=== PATIENT | female | born 1935 | race African-American/Black ===

== ENCOUNTER 2019-07-04 14:35 | Inpatient (IN) | payer MEDICARE, MEDICAID ==
[~2019-07-04] VITALS: Ht 160 cm; Wt 50.8 kg
[2019-07-04] VITALS (28 sets, daily range): BP systolic 71–200; BP diastolic 41–166
[2019-07-04] MEDS ORDERED: DOPAMINE 400MG/250ML PREMIX 250 ML IV ONE ×2 (14:51→15:45)
[2019-07-04] MEDS ORDERED: SODIUM CHLORIDE 0.9% 1,000 ML IV ONE (14:56)
[2019-07-04] MEDS ORDERED: ETOMIDATE 2MG/ML 10ML VIAL IV ONE (15:00)
[2019-07-04] MEDS ORDERED: SUCCINYLCHOLINE CHLORIDE 200MG/10ML IV ONE (15:00)
[2019-07-04 15:30] LABS: BG BASE EXCESS -0.8 mmol/L (-2.0-2.0); BG CARBOXYHEMOGLOBIN 0.7 % (0.5-1.5); BG DEOXYHEMOGLOBIN 0.3 % (0.0-5.0); BG FRACTION INSPIRED OXYGEN 100; BG HCO3 ACT 26.2 mmol/L (22.0-26.0); BG METHEMOGLOBIN 0.2 % (0.0-1.5); BG OXYGEN SATURATION 99.7 % (92.0-98.5); BG OXYHEMOGLOBIN 98.8 % (94.0-97.0); BG PCO2 53.3 mmHg (35.0-45.0); BG PH 7.309 (7.350-7.450); BG PO2 > 602.7 mmHg (75.0-100.0); BG SAMPLE SITE RIGHT RADIAL; BG TIDAL VOLUME(mL) 350 mL; BG TOTAL HEMOGLOBIN 12.5 g/dL (12.0-18.0); BG VENT MODE VENT - A/C; BG VENT RATE 14 set
[2019-07-04 16:12] LABS: HEMOGLOBIN. 12.8 g/dL (12.0-16.0); INR 1.4; MEAN CORPUSCULAR HEMOGLOBIN 29.4 pg (28.0-32.0); MEAN CORPUSCULAR VOLUME 96.8 fL (81.0-99.0); MEAN PLATELET VOLUME 12.2 fl (7.4-10.4); PARTIAL THROMBOPLASTIN TIME 31.5 sec (23.4-31.0); PLATELET 74 x1000/uL (130-400); PROTHROMBIN TIME 14.3 sec (9.6-11.0); RED BLOOD CELL COUNT 4.34 mill/uL (4.2-5.4); RED CELL DISTRIBUTION WIDTH 16.5 % (11.6-14.6)
[2019-07-04 17:07] LABS: PLATELET ESTIMATE DECREASED
[2019-07-04 17:30] LABS: CHLORIDE 115 mEq/L (98-107)
[2019-07-04] MEDS ORDERED: ATROPINE SULFATE 1MG/10ML SYR IV ONE ×3 (17:45→18:15)
[2019-07-04] MEDS ORDERED: IPRATROPIUM/ALBUTEROL 0.5-3(2.5)MG/3ML NEB HHN PRN (17:45)
[2019-07-04] MEDS ORDERED: ACETAMINOPHEN 325MG TABLET PO PRN (17:45)
[2019-07-04] MEDS ORDERED: ONDANSETRON HCL 4MG/2ML INJ IV PRN (17:45)
[2019-07-04 18:51] LABS: CLARITY URINE CLOUDY (CLEAR); COLOR URINE YELLOW (YELLOW); KETONES URINE NEGATIVE (NEGATIVE); LEUKOCYTE ESTERASE URINE NEGATIVE (NEGATIVE); NITRITE URINE NEGATIVE (NEGATIVE); OCCULT BLOOD URINE 2+ (NEGATIVE); PROTEIN URINE 1+ (NEGATIVE); SPECIFIC GRAVITY URINE 1.019 (1.005-1.030); UROBILINOGEN URINE 0.2 E.U./dL (0.2-1.0)
[2019-07-04] MEDS ORDERED: HYDRALAZINE 20MG/ML VIAL IV PRN (19:17)
[2019-07-04] MEDS ORDERED: SODIUM CHLORIDE 0.9% 1,000 ML IV SCH (19:30)
[2019-07-04] MEDS ORDERED: DOPAMINE 400MG/250ML PREMIX 250 ML IV PRN (19:45)
[2019-07-04] MEDS: BLOOD SUGAR DIAGNOSTIC STRIP TEST SCH (20:01)
[2019-07-04] MEDS: IPRATROPIUM/ALBUTEROL 0.5-3(2.5)MG/3ML NEB HHN SCH (20:17)
[2019-07-04] MEDS: INSULIN LISPRO 100 UNITS/ML SUBCUT SCH (20:29)
[2019-07-04] MEDS ORDERED: CHOL400T28 PO (22:53)
[2019-07-04] MEDS ORDERED: SITA50TA3 PO (22:53)
[2019-07-04] MEDS ORDERED: AMLO10TA80 PO (22:53)
[2019-07-04] MEDS ORDERED: CLON0.2T PO (22:53)
[2019-07-05] VITALS (106 sets, daily range): BP systolic 54–145; BP diastolic 23–112
[2019-07-05] MEDS: IPRATROPIUM/ALBUTEROL 0.5-3(2.5)MG/3ML NEB HHN SCH ×7 (00:51→20:26)
[2019-07-05] MEDS: BUDESONIDE 0.5MG/2ML NEB HHN SCH ×3 (00:51→20:34)
[2019-07-05] MEDS: INSULIN LISPRO 100 UNITS/ML SUBCUT SCH ×2 (06:13→18:27)
[2019-07-05] MEDS: BLOOD SUGAR DIAGNOSTIC STRIP TEST SCH ×11 (06:13→18:22)
[2019-07-05] MEDS: DEXTROSE 50% WATER 50ML SYRINGE IV PRN ×6 (06:14→12:14)
[2019-07-05 06:27] LABS: HEMATOCRIT. 40.7 % (36.0-48.0); HEMOGLOBIN. 12.9 g/dL (12.0-16.0); MEAN CORPUSCULAR HEMOGLOBIN 29.6 pg (28.0-32.0); MEAN CORPUSCULAR VOLUME 93.1 fL (81.0-99.0); MEAN PLATELET VOLUME 12.4 fl (7.4-10.4); PLATELET 109 x1000/uL (130-400); RED BLOOD CELL COUNT 4.37 mill/uL (4.2-5.4); RED CELL DISTRIBUTION WIDTH 15.6 % (11.6-14.6)
[2019-07-05] MEDS ORDERED: PIPERACILLIN/TAZOBACTAM 3.375 G in DEXT 5% WATER 100 ML IV SCH (08:00)
[2019-07-05] MEDS ORDERED: DEXT 5%/0.9% NACL 1,000 ML IV SCH (08:00)
[2019-07-05] MEDS: NOREPINEPHRINE 16 MG in DEXT 5% WATER 484 ML IV PRN ×2 (08:27→18:14)
[2019-07-05] MEDS ORDERED: MAGNESIUM 2 G PREMIX 50 ML IV NR (09:00)
[2019-07-05 09:36] LABS: NUCLEATED RED BLOOD CELLS 2 /100 WBC
[2019-07-05 09:38] LABS: PLATELET ESTIMATE SLIGHTLY DECREASED
[2019-07-05] MEDS ORDERED: SODIUM BICARBONATE 4% (2.4MEQ) 5ML VIAL IV ONE (09:47)
[2019-07-05] MEDS ORDERED: LIDOCAINE HCL 1% 20ML VIAL (Pyxis) INJ ONE ×2 (09:47→10:23)
[2019-07-05] MEDS ORDERED: VANCOMYCIN 1 G PREMIX 200 ML IV NR (10:00)
[2019-07-05] MEDS: PHENYLEPHRINE 80 MG in DEXT 5% WATER 492 ML IV PRN ×2 (10:18→18:14)
[2019-07-05] MEDS: PIPERACILLIN/TAZOBACTAM 2.25 G in DEXTROSE 5% WATER 50 ML IV SCH ×3 (10:49→21:13)
[2019-07-05] MEDS ORDERED: DEXT 10% WATER 1,000 ML IV SCH (11:00)
[2019-07-05 11:19] LABS: BG BASE EXCESS -11.8 mmol/L (-2.0-2.0); BG CARBOXYHEMOGLOBIN 0.9 % (0.5-1.5); BG DEOXYHEMOGLOBIN 1.1 % (0.0-5.0); BG FRACTION INSPIRED OXYGEN 40; BG HCO3 ACT 12.9 mmol/L (22.0-26.0); BG METHEMOGLOBIN 0.5 % (0.0-1.5); BG OXYGEN SATURATION 98.9 % (92.0-98.5); BG OXYHEMOGLOBIN 97.5 % (94.0-97.0); BG PCO2 26.4 mmHg (35.0-45.0); BG PH 7.308 (7.350-7.450); BG PO2 147.1 mmHg (75.0-100.0); BG SAMPLE SITE RIGHT BRACHIAL; BG TIDAL VOLUME(mL) 450 mL; BG TOTAL HEMOGLOBIN 12.1 g/dL (12.0-18.0); BG VENT MODE VENT - A/C; BG VENT RATE 14 set
[2019-07-05] MEDS ORDERED: SODIUM BICARBONATE 8.4% 1 MEQ/ML 50ML SYR IV NR (11:30)
[2019-07-05] MEDS: METHYLPREDNISOLONE SOD SUCC 40 MG/ML VIAL IV SCH ×2 (11:42→18:33)
[2019-07-05] MEDS ORDERED: DIGO125T82 PO (16:59)
[2019-07-05] MEDS: DEXT 5%/0.9% NACL 1,000 ML IV SCH (17:00)
[2019-07-06] VITALS (104 sets, daily range): BP systolic 46–142; BP diastolic 29–90
[2019-07-06] MEDS: BLOOD SUGAR DIAGNOSTIC STRIP TEST SCH ×4 (00:06→18:03)
[2019-07-06] MEDS: INSULIN LISPRO 100 UNITS/ML SUBCUT SCH ×4 (00:07→18:04)
[2019-07-06] MEDS: IPRATROPIUM/ALBUTEROL 0.5-3(2.5)MG/3ML NEB HHN SCH ×6 (00:26→19:57)
[2019-07-06] MEDS: PIPERACILLIN/TAZOBACTAM 2.25 G in DEXTROSE 5% WATER 50 ML IV SCH ×4 (02:18→21:09)
[2019-07-06] MEDS: METHYLPREDNISOLONE SOD SUCC 40 MG/ML VIAL IV SCH ×3 (02:36→21:13)
[2019-07-06] MEDS: DEXT 5%/0.9% NACL 1,000 ML IV SCH (03:03)
[2019-07-06] MEDS: NOREPINEPHRINE 16 MG in DEXT 5% WATER 484 ML IV PRN ×3 (03:59→21:09)
[2019-07-06] MEDS ORDERED: VANCOMYCIN 500 MG PREMIX 100 ML IV SCH (04:00)
[2019-07-06] MEDS: BUDESONIDE 0.5MG/2ML NEB HHN SCH ×2 (07:48→19:57)
[2019-07-06 08:36] LABS: BG BASE EXCESS -29.1 mmol/L (-2.0-2.0); BG CARBOXYHEMOGLOBIN 0.7 % (0.5-1.5); BG DEOXYHEMOGLOBIN 3.9 % (0.0-5.0); BG FRACTION INSPIRED OXYGEN 40; BG HCO3 ACT 4.1 mmol/L (22.0-26.0); BG METHEMOGLOBIN 0.3 % (0.0-1.5); BG OXYGEN SATURATION 96.1 % (92.0-98.5); BG OXYHEMOGLOBIN 95.1 % (94.0-97.0); BG PCO2 26.2 mmHg (35.0-45.0); BG PH 6.809 (7.350-7.450); BG PO2 107.9 mmHg (75.0-100.0); BG SAMPLE SITE LEFT BRACHIAL; BG TIDAL VOLUME(mL) 500 mL; BG TOTAL HEMOGLOBIN 10.4 g/dL (12.0-18.0); BG VENT MODE VENT - A/C; BG VENT RATE 18 set
[2019-07-06] MEDS ORDERED: SODIUM BICARBONATE 8.4% 1 MEQ/ML 50ML SYR IV ONE ×3 (08:45→23:25)
[2019-07-06] MEDS: SODIUM BICARBONATE 150 MEQ in DEXTROSE 5% WATER 1,000 ML IV SCH ×2 (09:40→21:45)
[2019-07-06] MEDS: VASOPRESSIN 10 UNIT in SODIUM CHLORIDE 0.9% 99.5 ML IV PRN ×2 (11:08→18:33)
[2019-07-06] MEDS: PANTOPRAZOLE SODIUM 40 MG/VIAL IV SCH ×2 (11:08→21:09)
[2019-07-06 11:27] LABS: HEMATOCRIT. 29.5 % (36.0-48.0); HEMOGLOBIN. 8.9 g/dL (12.0-16.0); MEAN CORPUSCULAR HEMOGLOBIN 30.1 pg (28.0-32.0); MEAN CORPUSCULAR VOLUME 99.8 fL (81.0-99.0); MEAN PLATELET VOLUME 11.4 fl (7.4-10.4); RED BLOOD CELL COUNT 2.96 mill/uL (4.2-5.4); RED CELL DISTRIBUTION WIDTH 17.1 % (11.6-14.6)
[2019-07-06 12:04] LABS: PLATELET 14 x1000/uL (130-400)
[2019-07-06] MEDS: PHENYLEPHRINE 80 MG in DEXT 5% WATER 492 ML IV PRN ×2 (12:32→21:16)
[2019-07-06] MEDS: SUCRALFATE 1 G/10 ML UDC NG SCH ×2 (15:46→21:09)
[2019-07-06 15:48] LABS: HEMATOCRIT. 23.9 % (36.0-48.0); HEMOGLOBIN. 7.2 g/dL (12.0-16.0); MEAN CORPUSCULAR HEMOGLOBIN 29.7 pg (28.0-32.0); MEAN CORPUSCULAR VOLUME 99.1 fL (81.0-99.0); RED BLOOD CELL COUNT 2.42 mill/uL (4.2-5.4); RED CELL DISTRIBUTION WIDTH 17.3 % (11.6-14.6)
[2019-07-06 15:51] LABS: PLATELET 12 x1000/uL (130-400)
[2019-07-06 16:27] LABS: NUCLEATED RED BLOOD CELLS 11 /100 WBC; PLATELET ESTIMATE MARKEDLY DECREASED
[2019-07-06 16:31] LABS: PROTHROMBIN TIME 67.7 sec (9.6-11.0)
[2019-07-06 16:41] LABS: FIBRINOGEN 91 mg/dL (200-400); INR 7.2
[2019-07-06 17:16] LABS: D-DIMER > 35.20 mg/L FEU (<0.50)
[2019-07-06 18:57] LABS: NUCLEATED RED BLOOD CELLS 5 /100 WBC; PLATELET ESTIMATE MARKEDLY DECREASED
== END 2019-07-06 23:24 | disposition expired | DRG 871 ==
LOC: ER 14:43 → MICUSO 16:06 → EDBEDREQSVC 16:09 → EDBEDREQ 16:09 → EDBEDREQTM 16:09 → ENRESERV 16:15
PROVIDERS: ADMIT Internal Medicine; ATTEND Internal Medicine
PROC: 5A1945Z Respiratory Ventilation, 24-96 Consecutive Hours (ICD-10-PCS; principal; 2019-07-04)
PROC: 0BH17EZ Insertion of Endotracheal Airway into Trachea, Via Natural or Artificial Opening (ICD-10-PCS; 2019-07-04)
PROC: 5A2204Z Restoration of Cardiac Rhythm, Single (ICD-10-PCS; 2019-07-04)
PROC: 02HV33Z Insertion of Infusion Device into Superior Vena Cava, Percutaneous Approach (ICD-10-PCS; 2019-07-05)
PROC: B548ZZA Ultrasonography of Superior Vena Cava, Guidance (ICD-10-PCS; 2019-07-05)
PROC: 4A00X4Z Measurement of Central Nervous Electrical Activity, External Approach (ICD-10-PCS; 2019-07-06)
PROC: 5A12012 Performance of Cardiac Output, Single, Manual (ICD-10-PCS; 2019-07-06)
PROC: 30233N1 Transfusion of Nonautologous Red Blood Cells into Peripheral Vein, Percutaneous Approach (ICD-10-PCS; 2019-07-06)
DX: A41.9 Sepsis, unspecified organism (principal); E43 Unspecified severe protein-calorie malnutrition; R65.21 Severe sepsis with septic shock; J18.9 Pneumonia, unspecified organism; D65 Disseminated intravascular coagulation [defibrination syndrome]; J96.21 Acute and chronic respiratory failure with hypoxia; I50.43 Acute on chronic combined systolic (congestive) and diastolic (congestive) heart failure; D68.9 Coagulation defect, unspecified; E87.2 Acidosis; N17.9 Acute kidney failure, unspecified; R64 Cachexia; C34.90 Malignant neoplasm of unspecified part of unspecified bronchus or lung; E87.0 Hyperosmolality and hypernatremia; G93.40 Encephalopathy, unspecified; I42.9 Cardiomyopathy, unspecified; J44.0 Chronic obstructive pulmonary disease with (acute) lower respiratory infection; K92.2 Gastrointestinal hemorrhage, unspecified; Z68.1 Body mass index [BMI] 19.9 or less, adult; I11.0 Hypertensive heart disease with heart failure; D64.9 Anemia, unspecified; E11.649 Type 2 diabetes mellitus with hypoglycemia without coma; E86.0 Dehydration; E87.8 Other disorders of electrolyte and fluid balance, not elsewhere classified; F03.90 Unspecified dementia, unspecified severity, without behavioral disturbance, psychotic disturbance, mood disturbance, and anxiety; G24.9 Dystonia, unspecified; I25.10 Atherosclerotic heart disease of native coronary artery without angina pectoris; I27.20 Pulmonary hypertension, unspecified; I48.91 Unspecified atrial fibrillation; I49.5 Sick sinus syndrome; Z88.2 Allergy status to sulfonamides
CPT/HCPCS: 31500; 36415; 36600; 71045; 71250; 76937; 80048; 80061; 81003; 82375; 82805; 82962; 83036; 83605; 83735; 83880; 84145; 84443; 84484; 85379; 85384; 86850; 86900; 86920; 87070; 93005; 93306; 93970; 94002; 94003; 94640; 95816; 99291; C1725; C9113; J1265; J1642; J1815; J2370; J2543; J2920; J3370; J3475; J3490; J7030; J7042; J7050; J7060; J7070; J7620; J7626; P9016